=== PATIENT | male | born 2000 | race African-American/Black ===

== ENCOUNTER 2018-04-08 20:03 | Emergency (ER) | payer OTHER ==
[~2018-04-08] VITALS: Ht 182.9 cm; Wt 59.0 kg
[2018-04-08 20:17] VITALS: BP 109/73
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
[2018-04-08] MEDS ORDERED: Ketorolac 30mg Inj IM ONE (20:30)
[2018-04-08 22:00] VITALS: BP 133/97
[2018-04-08 22:02] VITALS: BP 133/97
[2018-04-08] MEDS ORDERED: IBUPROFEN600 MG ORAL (22:04)
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
== END 2018-04-08 22:14 | disposition home or self-care (01) ==
LOC: EMR 20:30
DX: S62.396A Other fracture of fifth metacarpal bone, right hand, initial encounter for closed fracture (principal); Y04.2XXA Assault by strike against or bumped into by another person, initial encounter; Y92.9 Unspecified place or not applicable
CPT/HCPCS: 73130; 96372; 99283; J1885

== ENCOUNTER 2018-04-17 19:06 | Emergency (ER) | payer OTHER ==
[~2018-04-17] VITALS: Ht 182.9 cm; Wt 59.0 kg
[~2018-04-17 19:06] MED LIST: IBUPROFEN600 MG ORAL
[2018-04-17 20:16] VITALS: BP 126/71
--- NOTE | 2018-04-17 22:13 | Emergency Room Report ---
History of Present Illness General Chief Complaint: Upper Extremity Injury Source: Patient Present Illness HPI 17-year-old male presents ED for splint placement. Patient states he was called back today As he had a broken bone in his right hand. Was seen here on . Had x-rays and was subsequently discharged. Patient states pain is throbbing, 8 out of 10, nonradiating. Denies any other injuries. No other aggravating relieving factors. Denies any other associated symptoms Allergies: Coded Allergies: No Known Allergies (Unverified , 04/08/18) Patient History Past Medical History: none Past Surgical History: none Pertinent Family History: none Social History: Denies: smoking, alcohol use, drug use Immunizations: UTD Reviewed Nursing Documentation: PMH: Agreed; PSxH: Agreed Nursing Documentation-PMH Past Medical History: No Stated History Review of Systems All Other Systems: negative except mentioned in HPI Physical Exam Vital Signs Date Time Temp Pulse Resp B/P (MAP) Pulse Ox O2 Delivery O2 Flow Rate FiO2 04/17/18 19:32 98.9 82 18 126/71 99 Room Air 99.0 Sp02 EP Interpretation: reviewed, normal General Appearance: no apparent distress, alert, GCS 15, non-toxic Head: normocephalic Eyes: bilateral eye normal inspection, bilateral eye PERRL ENT: normal ENT inspection Neck: normal inspection Respiratory: normal inspection Cardiovascular #1: normal inspection Gastrointestinal: normal inspection Rectal: deferred Genitourinary: no CVA tenderness Musculoskeletal: tender - R 5th digit swelling Neurologic: alert, oriented x3, responsive, motor strength/tone normal, sensory intact, speech normal Psychiatric: normal inspection Skin: normal inspection Lymphatic: normal inspection Procedures Splinting Splinting : Consent: Verbal Hand-Made Type: plaster Splint: ulnar Pre-Proc Neuro Vasc Exam: normal Post-Proc Neuro Vasc Exam: normal Patient Tolerated: Well Complications: None Medical Decision Making Diagnostic Impression: Primary Impression: Boxers fracture Qualified Codes: S62.339D - Displaced fracture of neck of unspecified metacarpal bone, subsequent encounter for fracture with routine healing ER Course 17 yo M presents to ED for splint placement After initial history and physical I reviewed EMR. On 04/08 patient had x-rays which documented an old fracture to the fifth metacarpal. Radiology reviewed the x-rays and noted the fracture to be acute. Patient was called back. Ulnar gutter splint placed on the patient. Patient safe for discharge recommend close follow-up with PMD and/or to follow-up as outpatient Diagnosisboxer fracture Stable and discharged to home. Follow-up with PMD/orthopedic. Return to ED if symptoms recur or worsen Last Vital Signs Date Time Temp Pulse Resp B/P (MAP) Pulse Ox O2 Delivery O2 Flow Rate FiO2 04/17/18 20:16 98.9 18 126/71 99 Room Air 99.0 04/17/18 19:32 82 Status: improved Disposition: HOME, SELF-CARE Condition: Stable Referrals: [facility],REFERRING (PCP) Patient Instructions: Boxer's Fracture-SportsMed Ortega Rushing MD Apr 17, 2018 22:13
== END 2018-04-17 20:45 | disposition home or self-care (01) ==
LOC: EMR 20:12
DX: S62.336D Displaced fracture of neck of fifth metacarpal bone, right hand, subsequent encounter for fracture with routine healing (principal); X58.XXXD Exposure to other specified factors, subsequent encounter
CPT/HCPCS: 29105; 99283